=== PATIENT | female | born 1975 | race Caucasian/White ===

== ENCOUNTER 2019-09-24 19:34 | Observation (INO) | payer MEDICAID, SELFPAY ==
[2019-09-24 19:38] VITALS: BP 114/65; PULSE 75; RESP 16; TEMP 37.2; O2SAT 99; BMI 32.1
--- NOTE | 2019-09-24 20:10 | CTR_ITS ---
PROCEDURE INFORMATION: Exam: CT Head Without Contrast Exam date and time: 09/24/2019 8:24 PM Age: 44 years old Clinical indication: Pain; Weakness, facial; Headache; Additional info: CVA TECHNIQUE: Imaging protocol: Computed tomography of the head without contrast. Total DLP: 705.14 mGy-cm Radiation optimization: All CT scans at this facility use at least one of these dose optimization techniques: automated exposure control; mA and/or kV adjustment per patient size (includes targeted exams where dose is matched to clinical indication); or iterative reconstruction. COMPARISON: No relevant prior studies available. FINDINGS: Brain: Normal. No hemorrhage. Unremarkable white matter. No mass effect. Ventricles: Normal. No ventriculomegaly. Bones/joints: Unremarkable. No acute fracture. Sinuses: Visualized sinuses are unremarkable. No fluid levels. Mastoid air cells: Visualized mastoid air cells are well aerated. Soft tissues: Unremarkable. CT/CT head wo con* [id number] IMPRESSION: No acute intracranial abnormality. Radiation Dose CTDIVOL = (mGy): DLP = 705.14 (mGy-cm)
--- NOTE | 2019-09-24 20:10 | XR_ITS ---
WS: [id number] Portable AP upright chest, 09/24/2019 Clinical Data: cp Comparison: None. Findings: No nodules, masses or effusions are seen. The heart is normal. The pulmonary vascularity is not increased. No pneumonia or pneumothorax is seen. Patient's clothing obscures only minimal detail . XR/XR chest 1V portable [id number] Impression: Negative chest.
--- NOTE | 2019-09-24 20:11 | ECG_ITS ---
Measurements Intervals [place] Rate: 70 P: 51 CA: 142 QRS: 34 QRSD: 71 T: 32 QT: 350 QTc: 378 SINUS RHYTHM No previous ECG available for comparison Electronically Signed On 09-25-2019 12:57:37 CDT by Sahara Jacob M.D. [email or web address]
[2019-09-24 20:32] LABS: Basophils # 0.1 10^3/uL (0.0-0.1); Basophils % 0.6 %; Eosinophils # 0.2 10^3/uL (0.0-0.8); Eosinophils % 2.5 %; Hematocrit 42.9 % (37.0-47.0); Hemoglobin 12.8 g/dL (11.5-15.3); Lymphocytes # 1.9 10^3/uL (0.8-4.8); Lymphocytes % 22.4 %; Mean Corpuscular HGB Conc 29.8 g/dL (30.0-36.0); Mean Corpuscular Hemoglobin 28.1 pg (28.0-34.0); Mean Corpuscular Volume 94.1 fL (81-99); Mean Platelet Volume 12.5 fL (7.4-10.4); Monocytes # 0.6 10^3/uL (0.2-0.9); Neutrophils # 5.6 10^3/uL (1.8-7.7); Neutrophils % 67.3 %; Nucleated Red Blood Cells % 0 %; Platelet Count 258 10^3/cmm (130-400); Red Blood Count 4.56 10^6/uL (4.1-5.3); Red Cell Distribution Width 14.1 % (12.1-15.1); White Blood Count 8.3 10^3/uL (4.0-10.0)
--- NOTE | 2019-09-24 20:43 | ED_ITS ---
HPI - Weakness General: Chief complaint: Weakness Stated complaint: possible stroke symptoms Time Seen by Provider: 09/24/19 20:33 Source: patient and family Mode of arrival: ambulatory Limitations: no limitations History of Present Illness: HPI Narrative: 44-year-old female who states she has had left-sided facial droop and difficulty swallowing since noon today. She states she has had some left-sided weakness but is chronic weakness from spinal stenosis. Patient denies any new difficulties walking and can move both of her upper extremities. Patient denies any headache. She denies any chest pain. MD Complaint: generalized weakness and numbness Onset (ago): hour(s) Duration: constant Severity: moderate Relieving factors: none Exacerbating factors: none Associated symptoms: Denies chest pain, chills, dysuria, easy bruising, fever(s), headache(s), nausea or vomiting Review of Systems Const: Denies: fever, chills, body aches or change in appetite Eyes: Denies: blurry vision or eye discomfort ENMT: Denies: throat pain or dental pain Card: Denies: chest pain Resp: Denies: shortness of breath GI: Denies: abdominal pain, nausea, vomiting or diarrhea : Denies: painful urination Musc: Denies: neck pain or back pain Skin/Breast: Denies: rash Neuro: Reports: weakness in extremities and slurred speech; Denies: headache Psych: Denies: depression Anderson/Lymph: Denies: easy bruising All/Imm: Denies: hives PFSH ED PFSH: Social History Smoking and tobacco status: never smoked Female Reproductive History: Date of last menstrual period: 09/03/19 Physical Exam Const: COMMON NORMALS: no apparent distress, oriented x3 and healthy appearing HENMT: COMMON NORMALS: normocephalic and head/scalp atraumatic HEAD & SCALP: normocephalic and atraumatic Eye: COMMON NORMALS: PERRL and EOMs intact bilaterally PUPIL: Yes PERRL Neck/C-Spine: COMMON NORMALS: full ROM and supple Chest: COMMONS NORMALS: inspection of chest normal and palpation of chest normal Resp: COMMON NORMALS: normal respiratory effort, no retractions, no use of accessory muscles and clear to auscultation bilaterally AUSCULTATION: clear to auscultation bilaterally Cardio: COMMON NORMALS: regular rate, regular rhythm and no murmurs RATE: regular rate RHYTHM: regular rhythm GI: COMMON NORMALS: normal to inspection, nondistended, normoactive bowel sounds, soft to palpation, non-tender and no masses PALPATION: Yes soft Extremity: COMMON NORMALS: normal to inspection and full ROM Neuro: COMMON NORMALS: oriented x3 and moves all extremities; negative for no focal motor deficits (left sided facial droop, slight aphasia) Psych: COMMON NORMALS: mental status grossly normal, thought process normal and cooperative THOUGHT PROCESS: normal thought process Skin: COMMON NORMALS: no rashes or lesions noted and no wounds GENERAL SKIN EXAM: no rashes or lesions noted Course Vital Signs: Vital signs: Vital Signs Temperature 98.6 F 09/24/19 20:50 Pulse Rate 75 09/24/19 20:50 Respiratory Rate 18 09/24/19 20:50 Blood Pressure 131/73 09/24/19 20:50 Pulse Oximetry 100 09/24/19 20:50 MDM - Weakness MDM Narrative: Medical decision making narrative: Meli presents here with slight facial droop. Patient is not a TPA candidate as her symptoms started roughly at noon. She has no weakness on exam. Her CT head is negative at this time. Will admit for further evaluation. Lab Data: Labs: Lab Results 09/24/19 09/24/19 09/24/19 Range/Units 20:25 20:25 20:42 WBC 8.3 (4.0-10.0) 10^3/ uL RBC 4.56 (4.1-5.3) 10^6/u L Hgb 12.8 (11.5-15.3) g/dL Hct 42.9 (37.0-47.0) % MCV 94.1 (81-99) fL MCH 28.1 (28.0-34.0) pg MCHC 29.8 L (30.0-36.0) g/dL RDW 14.1 (12.1-15.1) % Plt Count 258 (130-400) 10^3/c mm MPV 12.5 H (7.4-10.4) fL Neut % (Auto) 67.3 % Lymph % (Auto) 22.4 % [place] % (Auto) 7.0 % Eos % (Auto) 2.5 % Baso % (Auto) 0.6 % Neut # (Auto) 5.6 (1.8-7.7) 10^3/u L Lymph # (Auto) 1.9 (0.8-4.8) 10^3/u L [place] # (Auto) 0.6 (0.2-0.9) 10^3/u L Eos # (Auto) 0.2 (0.0-0.8) 10^3/u L Baso # (Auto) 0.1 (0.0-0.1) 10^3/u L Nucleated RBC % (a uto) 0 % Nucleated RBCs # 0.0 /100WBC Sodium 139 (136-145) mmol/L Potassium 4.4 (3.5-5.1) mmol/L Chloride 103 (98-107) mmol/L Carbon Dioxide 26 (22-29) mmol/L Anion Gap 14.4 (5-19) BUN 11 (6-20) mg/dL Creatinine 0.8 (0.5-0.9) mg/dL GFR Calculation 78.3 L (90-130) mL/min Glucose 119 H (65-115) mg/dL POC Glucose 119 (70-110) mg/dL Calculated Osmolal ity 285 (285-295) mOsm/k g Calcium 9.3 (8.5-10.5) mg/dL Total Bilirubin 0.2 (0.15-1.2) mg/dL AST 13 (0-32) U/L ALT 13 (0-33) U/L Alkaline Phosphata se 51 (35-105) IU/L Total Protein 7.3 (6.6-8.7) g/dL Albumin 4.0 (3.5-5.2) g/dL Globulin 3.3 (1.3-4.6) g/dL Urine Color (Yellow) Urine Appearance (CLEAR) Urine pH (5-7) Ur Specific Gravit y (1.005-1.030) Urine Protein (Negative) Urine Glucose (UA) (Normal) Urine Ketones (Negative) Urine Blood (Negative) Urine Nitrate (Negative) Urine Bilirubin (NEGATIVE) Urine Urobilinogen (Negative) mg/dL Ur Leukocyte Elizabeth ase (Negative) 09/24/19 Range/Units 21:51 WBC (4.0-10.0) 10^3/ uL RBC (4.1-5.3) 10^6/u L Hgb (11.5-15.3) g/dL Hct (37.0-47.0) % MCV (81-99) fL MCH (28.0-34.0) pg MCHC (30.0-36.0) g/dL RDW (12.1-15.1) % Plt Count (130-400) 10^3/c mm MPV (7.4-10.4) fL Neut % (Auto) % Lymph % (Auto) % [place] % (Auto) % Eos % (Auto) % Baso % (Auto) % Neut # (Auto) (1.8-7.7) 10^3/u L Lymph # (Auto) (0.8-4.8) 10^3/u L [place] # (Auto) (0.2-0.9) 10^3/u L Eos # (Auto) (0.0-0.8) 10^3/u L Baso # (Auto) (0.0-0.1) 10^3/u L Nucleated RBC % (a uto) % Nucleated RBCs # /100WBC Sodium (136-145) mmol/L Potassium (3.5-5.1) mmol/L Chloride (98-107) mmol/L Carbon Dioxide (22-29) mmol/L Anion Gap (5-19) BUN (6-20) mg/dL Creatinine (0.5-0.9) mg/dL GFR Calculation (90-130) mL/min Glucose (65-115) mg/dL POC Glucose (70-110) mg/dL Calculated Osmolal ity (285-295) mOsm/k g Calcium (8.5-10.5) mg/dL Total Bilirubin (0.15-1.2) mg/dL AST (0-32) U/L ALT (0-33) U/L Alkaline Phosphata se (35-105) IU/L Total Protein (6.6-8.7) g/dL Albumin (3.5-5.2) g/dL Globulin (1.3-4.6) g/dL Urine Color Yellow (Yellow) Urine Appearance Clear (CLEAR) Urine pH 8 H (5-7) Ur Specific Gravit y 1.015 (1.005-1.030) Urine Protein Neg (Negative) Urine Glucose (UA) Norm (Normal) Urine Ketones Negative (Negative) Urine Blood Neg (Negative) Urine Nitrate Negative (Negative) Urine Bilirubin Neg (NEGATIVE) Urine Urobilinogen 1 H (Negative) mg/dL Ur Leukocyte Elizabeth ase Negative (Negative) Imaging Data^: CT Head: Attestation: I personally reviewed and interpreted this imaging study as follows: Radiologist's impression: [address] [address] [address] Scan Report Signed Patient: Meli Cobb Unit #: [id number] : 1975 Age/Sex: 44 / F ADM Date: 09/24/19 Loc: ER Room/Bed: Attending Dr: Ordering Provider/Ordering MD: Megan Conklin MD Date of Service: 09/24/19 Procedure(s): CT head wo con* [id number] Accession Number(s): [id number] Report Number: [id number] PROCEDURE INFORMATION: Exam: CT Head Without Contrast Exam date and time: 09/24/2019 8:24 PM Age: 44 years old Clinical indication: Pain; Weakness, facial; Headache; Additional info: CVA TECHNIQUE: Imaging protocol: Computed tomography of the head without contrast. Total DLP: 705.14 mGy-cm Radiation optimization: All CT scans at this facility use at least one of these dose optimization techniques: automated exposure control; mA and/or kV adjustment per patient size (includes targeted exams where dose is matched to clinical indication); or iterative reconstruction. COMPARISON: No relevant prior studies available. FINDINGS: Brain: Normal. No hemorrhage. Unremarkable white matter. No mass effect. Ventricles: Normal. No ventriculomegaly. Bones/joints: Unremarkable. No acute fracture. Sinuses: Visualized sinuses are unremarkable. No fluid levels. Mastoid air cells: Visualized mastoid air cells are well aerated. Soft tissues: Unremarkable. CT/CT head wo con* [id number] IMPRESSION: No acute intracranial abnormality. EKG Data^: EKG 1: Attestation: I personally reviewed and interpreted this EKG as follows: EKG interpretation date: 09/24/19 EKG interpretation time: 21:04 Interpretation: nsr hr [address] or t wave abnormalities qrs 71 qtc 371 Discharge Plan Discharge Prescriptions: No Action celecoxib 200 mg capsule See Rx Instructions .ROUTE .COMPLEX RF: 0 baclofen 10 mg tablet See Rx Instructions .ROUTE .COMPLEX RF: 0 ibuprofen 200 mg Tablet 200 mg PO Q6H PRN (Reason: Pain) RF: 0 gabapentin 300 mg capsule See Rx Instructions .ROUTE .COMPLEX RF: 0 Coding Level of Care Code ED Communicable Disease Specialist for Denys Fwd Exam Comprehensive
--- NOTE | 2019-09-24 20:46 | PC.NURSE ---
BS reading 119
[2019-09-24 20:47] LABS: Glucose Point of Care 119 mg/dL (70-110)
[2019-09-24 20:48] LABS: Alanine Aminotransferase 13 U/L (0-33); Alkaline Phosphatase 51 IU/L (35-105); Anion Gap 14.4 (5-19); Aspartate Amino Transferase 13 U/L (0-32); Blood Urea Nitrogen 11 mg/dL (6-20); Calcium 9.3 mg/dL (8.5-10.5); Carbon Dioxide 26 mmol/L (22-29); Chloride 103 mmol/L (98-107); Globulin 3.3 g/dL (1.3-4.6); Glomerular Filtration Rate 78.3 mL/min (90-130); Glucose 119 mg/dL (65-115); Osmolality Calculated 285 mOsm/kg (285-295); Potassium 4.4 mmol/L (3.5-5.1); Sodium 139 mmol/L (136-145); Total Bilirubin 0.2 mg/dL (0.15-1.2); Total Protein 7.3 g/dL (6.6-8.7)
[2019-09-24 20:50] VITALS: BP 131/73; PULSE 75; RESP 18; TEMP 37; O2SAT 100
--- NOTE | 2019-09-24 22:21 | P.HP_ITS ---
Providers/Chief Complaint Primary Care Provider: Michael Rich APRN Chief Complaint: possible stroke symptoms History of Present Illness Meli Cobb is a 44 year old female who has a history of spinal stenosis status post surgeries on her neck back and leg without significant past medical history came in with chief complaint of right-sided facial droop and inability to eat or noodles. Her symptoms started at 6:30 PM when she was trying to eat noodles, her returned home and noticed right-sided facial droop, at that time she noticed that she is not able to whistle or swallow noodles and her right eyelid was twitching. She called EMS and was evaluated in ER NIH score of 1, CT head negative, blood work is unremarkable, EKG showing sinus rhythm with LVH criteria, she is not hypertensive, heart rate 80. She is denying such symptoms in the past, she is denying [place], coronary disease, stroke. She is endorsing to right leg limited range of motion because of her spinal stenosis and leg surgery but she has not noticed any new changes. She uses walker for ambulation at home. Review of Systems Const: Denies: fever or chills Eyes: Reports: eye discomfort; Denies: change in vision ENMT: Denies: throat pain or painful swallowing Card: Denies: chest pain or palpitations Resp: Denies: shortness of breath or non-productive cough GI: Denies: abdominal pain, nausea or vomiting : Denies: flank pain, difficulty urinating or urinary frequency Musc: Reports: back pain, joint pain, joint stiffness and limited range of motion; Denies: neck pain Skin/Breast: Denies: rash Neuro: Reports: difficulty walking; Denies: headache, weakness in extremities, lack of coordination, dizziness, confusion, slurred speech or seizure-like activity Psych: Denies: anxiety Endo: Denies: excessive urination Anderson/Lymph: Denies: easy bruising All/Imm: Denies: hives Medications/Allergies Home Medications Medication Instructions Recorded Confirmed Last Taken Type baclofen See Rx Instructions .ROUTE .COMPLEX 09/24/19 09/24/19 09/24/19 History celecoxib See Rx Instructions .ROUTE .COMPLEX 09/24/19 09/24/19 09/24/19 History gabapentin See Rx Instructions .ROUTE .COMPLEX 09/24/19 09/24/19 09/24/19 History ibuprofen 200 mg PO Q6H PRN 09/24/19 09/24/19 Unknown History Allergies Allergy/AdvReac Type Severity Reaction Status Date / Time No Known Allergies Allergy Verified 09/24/19 19:48 PFSH Acute PFSH: Medical History (Updated 09/24/19 @ 23:18 by Jennifer Galindo MD) No pertinent past medical history Spinal stenosis Surgical History (Updated 09/24/19 @ 23:15 by Jennifer Galindo MD) H/O neck surgery Previous back surgery Family History (Updated 09/24/19 @ 23:15 by Jennifer Galindo MD) Denies family history of Clotting disorder Dementia Chronic kidney disease (CKD) Cancer Social History (Updated 09/24/19 @ 23:16 by Jennifer Galindo MD) Smoking and tobacco status: never smoked Alcohol intake: never Substance/Drug Use: never Household members: spouse and family Housing: House Female Reproductive History: Date of last menstrual period: 09/03/19 Vitals/I&O/Wt Last Vital Signs Temp 98.6 F 09/24/19 20:50 Pulse 75 09/24/19 20:50 Resp 18 09/24/19 20:50 BP 131/73 09/24/19 20:50 Pulse Ox 100 09/24/19 20:50 Weight last 48 hrs Weight 77.111 kg Physical Exam Narrative: EXAM NARRATIVE: This is a young female lying comfortably in her bed EOMI, PERRLA NIH 1 No slurring of speech or dysarthria She is experiencing twitching of right eyelid, Right-sided facial droop noticed, negative Rich's palsy no deviation of tongue, she has good cough reflex No visual deficit No pronator drift No cerebellar signs Limited range of motion of right leg however, chronic weakness, Gait was not checked, Reflexes equivocal S1, S2 sinus rhythm, heart rate 80 Systolic blood pressure 127 Abdomen soft, nontender, distended, obese obesity, bowel sound present Lungs are clear to auscultation no adventitious sounds Appropriate mood and affect Skin does not show any signs of ischemia gangrene or ulcer Data : 09/24/19 20:25 09/24/19 20:25 A&P Assessment and plan (1) TIA (transient ischemic attack): Status: Acute Code(s): G45.9 - Transient cerebral ischemic attack, unspecified Additional A&P Information TIA ABCD 2 score is 1 [address] score [address] head negative We will check A1c level, lipid panel, Kindly reevaluate her in the morning if she could benefit from an MRI, considering recent use of celecoxib I would try to rule out embolic phenomenon for this TIA we will get CTA head and neck Physical therapy Regular diet, I will start her on aspirin, high-dose statin and Plavix and discontinue celecoxib Spinal stenosis with right sided chronic leg weakness with limited range of motion No acute deficit Full code Regular diet DVT prophylaxis Lovenox Attestations Medical Necessity Statement*: Anticipating discharge in less than 48 hours if she stays clinically stable Time Spent in Patient Care: 45 Coding Level of Care Code Acute Glueline Worker for Denys Ramos Diagnoses TIA (transient ischemic attack) G45.9
[2019-09-24 22:40] LABS: Add Urine Microscopic? NO
[2019-09-24 22:44] LABS: Bilirubin Urine Neg (NEGATIVE); Blood Urine Neg (Negative); Glucose Urine UA Norm (Normal); Ketones Urine Negative (Negative); Leukocyte Esterase Urine Negative (Negative); Nitrate Urine Negative (Negative); Protein Urine Neg (Negative); Specific Gravity, Urine 1.015 (1.005-1.030); Urine Appearance Clear (CLEAR); Urine Color Yellow (Yellow); Urobilinogen Urine 1 mg/dL (Negative); pH Urine 8 (5-7)
[2019-09-24] MEDS: aspirin 325 mg Tablet PO (23:15)
[2019-09-24 23:41] VITALS: BP 126/84; PULSE 88; RESP 16; TEMP 36.8; O2SAT 96
--- NOTE | 2019-09-24 23:59 | PC.NURSE ---
pt with left side of face not equal when asked to smile. unable to do heel man to right leg pt reports normal weakness for her from previous surgery.
[2019-09-25] MEDS: enoxaparin 40 mg/0.4 mL Syringe SUBCUT (00:20)
[2019-09-25 00:36] LABS: Chol HDL Ratio 4.41 mg/dL (0.0-4.40); Cholesterol 181 mg/dL (0-200); HDL Cholesterol 41 mg/dL (60-100); LDL Cholesterol Calculated 102 mg/dL (50-129); LDL HDL Ratio 2.49 RATIO (0.00-3.22); Triglycerides 192 mg/dL (0-150)
[2019-09-25 00:40] VITALS: BP 114/76; PULSE 80; RESP 18; TEMP 36.7; O2SAT 98
[2019-09-25] MEDS: baclofen 10 mg Tablet 20 MG PO ×3 (00:43→21:30)
[2019-09-25] MEDS: gabapentin 300 mg Capsule 600 MG PO ×4 (00:43→17:46)
[2019-09-25 01:16] LABS: Estmated Average Glucose 111; Hemoglobin A1C 5.5 % (4.0-6.0)
--- NOTE | 2019-09-25 02:11 | PC.NURSE ---
ct called pt to come down for cta of head. Iv to left hand, x2 attempts to get 20 at ac unsuccessful at this time. House supervisior notified. Pt refusing any more sticks tonight wants to rest and try in am. Ct made aware.
[2019-09-25 04:35] VITALS: BP 124/85; PULSE 70; RESP 20; TEMP 36.6; O2SAT 91
[2019-09-25 07:40] VITALS: BP 100/67; PULSE 104; RESP 20; TEMP 37.1; O2SAT 97
[2019-09-25] MEDS: atorvastatin 40 mg Tablet 80 MG PO (08:33)
[2019-09-25] MEDS: aspirin 81 mg EC Tablet PO (08:33)
[2019-09-25] MEDS: clopidogrel 75 mg Tablet PO (08:33)
--- NOTE | 2019-09-25 11:26 | PC.NURSE ---
IV STARTED BY MARIA M JONAS FROM DIRECT CARE SPECIALIST WITH ULTRASOUND ON FIRST STICK FOR CTA PROCEDURE
[2019-09-25 12:00] VITALS: BP 100/68; PULSE 81; RESP 18; TEMP 36.9; O2SAT 97
--- NOTE | 2019-09-25 14:12 | PC.NURSE ---
patient taken to CT
[2019-09-25] MEDS: iohexol 350 mg/mL 100 mL Btl IV (14:17)
[2019-09-25 15:18] VITALS: BP 105/69; PULSE 74; RESP 22; TEMP 37.1; O2SAT 96
[2019-09-25] MEDS: acetaminophen 325 mg Tablet 650 MG PO (16:43)
--- NOTE | 2019-09-25 18:17 | P.PN_ITS ---
Subjective Subjective: Interval history: continues with L side facial palsy, unchanged. No new symptoms . CTa pending Medications: Reviewed: Yes Vitals/I&O/Wt Last Vital Signs Temp 98.8 F 09/25/19 15:18 Pulse 74 09/25/19 15:18 Resp 22 H 09/25/19 15:18 BP 105/69 09/25/19 15:18 Pulse Ox 96 09/25/19 15:18 09/25/19 09/25/19 09/25/19 06:59 14:59 22:59 Intake Total 300 / 300 360 / 360 240 / 600 Output Total 600 / 600 201 / 201 Balance -300 / -300 360 / 360 39 / 399 Weight last 48 hrs Weight 77.111 kg Physical Exam Narrative: EXAM NARRATIVE: GEN: Awake, alert and oriented, no acute distress CVS: S1S2 N RS: CTA B/L Abd: Soft, nt/nd , bs+ ANTIQUER: left side facial paralysis Data : 09/24/19 20:25 09/24/19 20:25 A&P Assessment and plan (1) CVA (cerebral vascular accident): Status: Acute Code(s): I63.9 - Cerebral infarction, unspecified Additional A&P Information Current NIH score 1 CT head negative, CTA pending Patient c/o dysphagia will order swallow evaluation, unable to ascertain if isolated 7th nerve palsy vs other intracranial nerve involvement Physical therapy Regular diet, Spinal stenosis with right sided chronic leg weakness with limited range of motion No acute deficit Full code Regular diet DVT prophylaxis Lovenox Attestations Medical Necessity Statement*: pending CTA results Coding Level of Care Code Acute Industrial Maintenance Repairer Helper for [facility] Fwd Diagnoses CVA (cerebral vascular accident) I63.9
[2019-09-25 20:00] VITALS: BP 112/76; PULSE 79; RESP 20; TEMP 36.9; O2SAT 94
[2019-09-25] MEDS: artificial tears Op Soln 15 mL Btl 1 DROP EYE-BOTH (21:30)
--- NOTE | 2019-09-25 23:46 | CT_ITS ---
WS: [id number] CTA HEAD AND NECK TECHNIQUE: Contrast enhanced CTA of the head and neck with coronal and sagittal reformatted images an d maximum intensity projection (MIP) images. NASCET criteria utilized. CLINICAL INFORMATION: TIA COMPARISON: None. DLP: 2048.[address] scans at [facility] use at least one of these dose optimization techniques: automat ed exposure control; mA and/or kV adjustment per patient size (includes targeted exams where dose is matched to clinical indication); or iterative reconstruction. FINDINGS: RIGHT: Right common carotid artery is patent. No significant right ICA stenosis. ICA is patent to the skull base. LEFT: Left common carotid artery is patent. No significant left ICA stenosis. Left ICA is patent to t he skull base. INTRACRANIAL CTA: Both vertebral arteries are patent. Codominant vertebral arteries. Normal basilar artery. Normal vasc ularity to the [employer]PERATOR territory bilaterally. Normal vascularity to the [place] and MCA territories bilaterally. No evidence of high-grade proximal cornelius nosis or aneurysm. Normal thyroid gland. Mastoid air cells and paranasal sinuses are well aerated. Moderate spondylitic changes cervical spine worse at C5-C7. Wide decompressive laminectomies. CT/CT angio headneck* [id number] IMPRESSION: 1. No significant ICA stenosis. 2. Normal intracranial andreafski of Anderson. 3. No evidence of high-grade intracranial stenosis. 4. Normal vertebral arteries.
[2019-09-26] VITALS: BP 102/68; PULSE 84; RESP 18; TEMP 36.7; O2SAT 95
[2019-09-26] MEDS: artificial tears Op Soln 15 mL Btl 1 DROP EYE-BOTH ×5 (01:02→17:44)
[2019-09-26] MEDS: enoxaparin 40 mg/0.4 mL Syringe SUBCUT (01:02)
[2019-09-26 04:00] VITALS: BP 111/67; PULSE 98; RESP 22; TEMP 36.5; O2SAT 94
[2019-09-26 07:43] VITALS: BP 130/68; PULSE 102; RESP 18; TEMP 37.1; O2SAT 96
[2019-09-26] MEDS: aspirin 81 mg EC Tablet PO (08:30)
[2019-09-26] MEDS: gabapentin 300 mg Capsule 600 MG PO ×3 (08:30→17:43)
[2019-09-26] MEDS: atorvastatin 40 mg Tablet 80 MG PO (08:31)
[2019-09-26] MEDS: clopidogrel 75 mg Tablet PO (08:31)
[2019-09-26] MEDS: baclofen 10 mg Tablet 20 MG PO ×2 (08:31→13:58)
[2019-09-26 11:23] VITALS: BP 120/74; PULSE 101; RESP 16; TEMP 37.2; O2SAT 94
--- NOTE | 2019-09-26 13:56 | MRR_ITS ---
PROCEDURE INFORMATION: Exam: MR Head Without Contrast Exam date and time: 09/26/2019 2:20 PM Age: 44 years old Clinical indication: Weakness, facial; Patient HX: Left facial numbness/unable to close left eye; Additional info: Stroke TECHNIQUE: Imaging protocol: MR of the head without contrast. COMPARISON: CT head wo con* [id number] 09/24/2019 8:46 PM FINDINGS: Brain: There is no evidence of acute intracranial hemorrhage, midline shift or mass effect. There is an ovoid 6 mm focus of increased T2/FLAIR hyperintensity within the right frontal lobe which is without evidence of diffusion restriction or susceptibility related artifact (image 18, series 6). There are a few additional scattered T2/FLAIR hyperintesities within the subcortical and periventriclar white matter. There is no evidence of acute ischemia on diffusion weighted imaging. Ventricles: No ventriculomegaly. Bones/joints: Unremarkable. Soft tissues: Unremarkable. Sinuses: There is mild mucosal thickening within the maxillary sinuses right greater than left. Mastoid air cells: Normal as visualized. No mastoid effusion. Orbits: Unremarkable. Sella: Partial empty sella is incidentally noted. MR/MR head wo con* [id number] IMPRESSION: 1. No acute intracranial process identified. 2. Few T2/FLAIR hyperintesities within the subcortical and periventriclar white matter as detailed, which are nonspecific and are most commonly seen with chronic microvascular ischemic versus post inflammatory change. Additional etiologies include chronic migraine and demyelinating processes. 3. Mild maxillary sinus mucosal thickening right slightly greater than left. No evidence of air-fluid level.
--- NOTE | 2019-09-26 14:10 | PC.CHAP ---
Pastoral Care Encounter/Spiritual Assessment Type of Contact [] Declined baggage porter visit [] Patient/Family/Request visit [] Outpatient visit [] Follow-up visit [] Physician referral [] Code/Alert [X] Routine visit [] Staff referral [] Actively dying [] Patient sleeping [] Family support [] [] Out of room [] Palliative care [] [] Receiving care in room [] Pre-surgical visit [] Trauma [] Long length of stay [] ICU visit [] Other: Relational/Emotional Strength [] Patient feels connected with others/family/visitors/staff [] Distress [] Loneliness/isolation [] Abandonment Spirituality of Patient [] Person of Vanessa [] Attends Presybeterian of their Vanessa [] Believes in Prayer [] Reads Bible or Druze materials [] There are Spiritual issues to be addressed Sample Grinder Interventions [] Prayer [] Active listening [] Non-anxious presence [] Spiritual/emotional support [] Crisis/trauma care [] Spiritual counseling [] Bereavement support [] Provided bereavement packet [] Provided Bible/devotional materials [] Provided toy/stuffed animal, coloring book to patient or family member [] Provided Communion [] Anointing/[facility] [place] [] Salvation [] Completed spiritual assessment [] Other: Impact on Illness or Injury [] Angry [] Fearful [] Anxious [] Often cries [] Exhaustion [] Unable to work [] Unable to attend synagogue [] Unable to walk/stand [] Unable to read [] Unable to drive [] Unable to eat/drink [] Unable to sleep [] Unable to be with family [] Patient intubated [] Other: Summary Time spent with patient
[2019-09-26 15:29] VITALS: BP 116/78; PULSE 74; RESP 16; TEMP 36.9; O2SAT 94
[2019-09-26] MEDS: predniSONE 20 mg Tablet 60 MG PO (15:47)
--- NOTE | 2019-09-26 16:11 | P.DS_ITS ---
Discharge Providers Date of Admission: 09/24/19 22:07 Date of Discharge: September 26, 2019 Attending Provider at Admission: Jennifer Galindo MD Attending Provider at Discharge: Violet Lee MD Primary Care Provider: Michael Rich APRN Diagnoses at Discharge Discharge Diagnosis (1) Rich's palsy: Status: Acute Reason for Visit Reason for Visit: Reason For Visit: facial paralysis Hospital Course Discharge Summary: 44 year old female who has a history of spinal stenosis status post surgeries on her neck back and leg presented to the hospital with acute onset left sided facial paralysis affecting both upper and lower part of face with associated dysguesia and shooting pain in and behind the left ear. There were no other new focal deficits. There was noticeable loss of left nasolabial fold, drooling at left side of mouth, inability to close left eye and reduced movemenst over left forehead. CT head, CTA head & neck, and MR head were without any evidence of acute stroke. Overall symptoms consistent with Rich's palsy. She was started on treatment with Prednisone 60mg per day and Valacyclovir to complete a course of 1 week with advise to follow up with her PCP. PUD ppx was given with pantoprazole. Patient underwent close neuro monitoring, without evidence of any other developing deficits. She was recommended to use an eye patch for the left eye and also use artificial tears liberally. 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 Discharge Data Data Completed and Pending: Completed Studies During Hospitalization Category Date Time Status CT angio headneck * 80099/25657 Urge nt Cat Scan 09/25/19 23:[address] head wo con* 7 0450 Urgent Cat Scan 09/24/19 20:10 Completed XR chest 1V leigha ble 51827 Urgent Exams 09/24/19 20:10 Completed MR head wo con* 7 0551 Routine MRI 09/26/19 13:56 Completed Pending at discharge Category Date Time Status FL barium swallow modifd 99115 Rout ine Exams 09/28/19 09:00 Stop Req Vitals: Last Vital Signs Temp 98.4 F 09/26/19 15:29 Pulse 74 09/26/19 15:29 Resp 16 09/26/19 15:29 BP 116/78 09/26/19 15:29 Pulse Ox 94 09/26/19 15:29 Discharge Plan Discharge Patient Disposition: Home, Self-Care Condition: Stable Prescriptions: New valacyclovir 1 gram Tablet 1,000 mg PO BID 7 Days Qty: 14 RF: 0 prednisone 20 mg Tablet 60 mg PO DAILY 7 Days Qty: 7 RF: 0 aspirin 81 mg Tablet,Delayed Release (Dr/Ec) 81 mg PO DAILY Qty: 0 RF: 0 pantoprazole 40 mg Tablet,Delayed Release (Dr/Ec) 40 mg PO DAILY 7 Days Qty: 7 RF: 0 Isopto Tears 0.5 % Drops 1 drp eye-both Q1H Qty: 0 RF: 0 artificial tears(hypromellose) 0.3 % gel 1 drop ophthalmic (eye) BID PRN (Reason: dry eyes) Qty: 10 RF: 0 Continued baclofen 10 mg tablet See Rx Instructions .ROUTE .COMPLEX RF: 0 ibuprofen 200 mg Tablet 200 mg PO Q6H PRN (Reason: Pain) RF: 0 gabapentin 300 mg capsule See Rx Instructions .ROUTE .COMPLEX RF: 0 Discontinued celecoxib 200 mg capsule See Rx Instructions .ROUTE .COMPLEX RF: 0 Discharge Orders: Discharge Order (Routine); Ordered 09/26/19 Ordered By: Violet Lee Referrals: Michael Rich APRN [Primary Care Provider] - 7-10 days (Call Saturday to be seen in the next 7 to 10 days.) Discharge Diet: Usual diet Discharge Activity: Resume usual activity Patient Instructions: Prednisone (By mouth), Aspirin (By mouth), Valacyclovir (By mouth), Pantoprazole (By mouth), Eye Lubricant (Into the eye), Transient Ischemic Attack (DC) Discharge Date/Time: 09/26/19 18:10 Discharge Attestations Time Spent in Discharge Care*: greater than 30 min Quality Metrics Clinical Quality Measures During this hospital stay, did patient experience: None Coding Level of Care Code Acute Fountain Dispenser for Denys Ramos Diagnoses Rich's palsy G51.0
[2019-09-26] MEDS: valACYclovir 1,000 mg Tablet 1000 MG PO (17:43)
--- NOTE | 2019-09-26 17:54 | PC.NURSE ---
Discharge Discharge information given per the physician's order. Patient verbalized understanding of the information and did not have any further questions.
[2019-09-26 18:41] VITALS: BP 116/78; PULSE 74; RESP 16; TEMP 36.9; O2SAT 94
== END 2019-09-26 18:10 | disposition home or self-care (01) ==
LOC: ER 20:33 → MEDSURG 23:24
PROVIDERS: Admitting Provider Internal Medicine; Emergency Provider Emergency Medicine; PCP Nurse Practitioner Family; Visit Provider Student in an Organized Health Care Education/Training Program
DX: G45.9 Transient cerebral ischemic attack, unspecified (principal); I63.9 Cerebral infarction, unspecified; G51.0 Bell's palsy
CPT/HCPCS: 12345; 36416; 70450; 70496; 70498; 70551; 71045; 80053; 80061; 81003; 82962; 83036; 85025; 92523; 92610; 93005; 96372; 97116; 97162; 99283; 99285; G0378; J1650; J7512; Q9967

== ENCOUNTER 2019-10-09 11:06 | Emergency (ER) | payer MEDICAID, SELFPAY ==
[2019-10-09 11:31] VITALS: BP 109/72; PULSE 74; RESP 16; TEMP 36.7; O2SAT 95; BMI 32.8
[2019-10-09 11:37] VITALS: O2SAT 98
--- NOTE | 2019-10-09 11:38 | ED_ITS ---
Entered by Lopez Garcia, acting as scribe for Raj Patrick DO Oct 09, 2019 11:06 HPI - Headache General: Chief Complaint: Headache Stated Complaint: H/A Time Seen by Provider: 10/09/19 11:38 History of Present Illness: HPI Narrative: 44 yo female presents with headache. Pt states that her headache is behind her left eye and goes to her ear. Pt states that she was recently diagnosed with bells palsy. Pt states that she took ibuprofen a few hours ago. pt states that she has had headaches all week. MD elicited complaint: headache Onset (ago): week(s) (1) Onset description: gradually Location: left Quality & Timing: aching Relieving factors: nothing Associated symptoms: Reports no associated symptoms; Deny chest pain, confusion, fever(s), malaise, nausea, rash, syncope or vomiting Review of Systems Const: Denies: fever, chills, body aches, fatigue, malaise or night sweats Eyes: Denies: change in vision or blurry vision ENMT: Denies: throat pain, oral sores/lesions, dental pain, nasal discharge or nasal congestion Card: Denies: chest pain, palpitations, irregular heart rhythm, edema, syncope, shortness of breath on exertion, shortness of breath when lying down or leg pain with exertion Resp: Denies: shortness of breath, productive cough, non-productive cough or wheezing GI: Denies: abdominal pain, nausea, vomiting, vomiting blood, coffee grounds in vomit, difficulty swallowing, heartburn/indigestion, diarrhea, constipation, cramping, blood in stool or black tarry stool : Denies: flank pain, painful urination, urinary frequency, urinary urgency, urinary incontinence or blood in urine Musc: Denies: neck pain, back pain, extremity pain, extremity swelling, joint pain or joint swelling Skin/Breast: Denies: rash, itching or redness Neuro: Reports: headache; Denies: numbness in extremities, weakness in extremities, changes in sensation, lack of coordination, difficulty walking, frequent falls, dizziness, vertigo or confusion Psych: Denies: anxiety, depression, loss of interest, visual hallucinations, auditory hallucinations, suicidal ideation or homicidal ideation Endo: Denies: excessive urination, excessive thirst, tired all the time or cold intolerance Anderson/Lymph: Denies: easy bruising, easy bleeding, petechiae, enlarged lymph nodes or tender lymph nodes PFSH ED PFSH: Medical History (Updated 10/09/19 @ 13:04 by Raj Patrick DO) No pertinent past medical history Spinal stenosis Surgical History (Updated 09/24/19 @ 23:15 by Jennifer Galindo MD) H/O neck surgery Previous back surgery Family History (Updated 09/24/19 @ 23:15 by Jennifer Galindo MD) Denies family history of Clotting disorder Dementia Chronic kidney disease (CKD) Cancer Social History (Updated 09/24/19 @ 23:16 by Jennifer Galindo MD) Smoking and tobacco status: never smoked Alcohol intake: never Household members: spouse and family Housing: House Female Reproductive History: Date of last menstrual period: 09/24/19 Physical Exam Const: COMMON NORMALS: average body habitus, oriented x3 and alert GENERAL APPEARANCE: cooperative, comfortable, well kempt and well developed NUTRITIONAL APPEARANCE: not obese ORIENTATION/CONSCIOUSNESS: Yes awake, Yes oriented to person and Yes oriented to place HENMT: COMMON NORMALS: normocephalic, head/scalp atraumatic, EAC's normal, TM's normal bilaterally, external nose normal, moist oral mucous membranes and oropharynx normal HEAD & SCALP: normocephalic and atraumatic NOSE: external nose normal EXTERNAL AUDITORY CANAL: EAC's normal TYMPANIC MEMBRANE: TM's normal bilaterally MOUTH: oral and palatal mucosa normal, lip normal and tongue normal THROAT: posterior oropharynx normal and tonsils normal Eye: COMMON NORMALS: PERRL, EOMs intact bilaterally, conjunctivae normal and no scleral icterus CONJUNCTIVA: Yes conjunctivae normal PUPIL: Yes PERRL Neck/C-Spine: COMMON NORMALS: full ROM, no lymphadenopathy, supple, no meningeal signs and thyroid normal THYROID: thyroid normal and asymmetrical Lymph: LYMPHATIC: no lymphadenopathy noted Resp: COMMON NORMALS: normal respiratory effort, no retractions, no use of accessory muscles and clear to auscultation bilaterally AUSCULTATION: clear to auscultation bilaterally Cardio: COMMON NORMALS: regular rate and regular rhythm RATE: regular rate RHYTHM: regular rhythm HEART SOUNDS: no murmurs GI: COMMON NORMALS: normal to inspection, nondistended, normoactive bowel sounds, soft to palpation and no hepatosplenomegaly PALPATION: Yes soft and Yes no hepatosplenomegaly : COMMON NORMALS: Yes no CVA tenderness BLADDER/KIDNEY EXAM: Yes no CVA tenderness Back/Pelvis: COMMON NORMALS: no CVA tenderness LUMBAR SPINE/LOWER BACK: Yes normal to inspection Extremity: COMMON NORMALS: no clubbing, cyanosis or edema, no calf tenderness and no pedal edema Neuro: COMMON NORMALS: oriented x3 SENSORIUM/ORIENTATION: Yes alert, Yes oriented to person and Yes oriented to place MENINGEAL SIGNS: Yes no meningeal signs Psych: APPEARANCE: Yes well kempt Skin: COMMON NORMALS: no rashes or lesions noted and skin turgor normal GENERAL SKIN EXAM: no rashes or lesions noted and turgor normal Course Vital Signs: Vital signs: Vital Signs Temperature 98.1 F 10/09/19 11:31 Pulse Rate 74 10/09/19 13:28 Respiratory Rate 16 10/09/19 13:28 Blood Pressure 105/68 10/09/19 13:28 Pulse Oximetry 97 10/09/19 13:28 MDM - Headache MDM Narrative: Medical decision making narrative: Her exam is normal. Her headache is improved we will go ahead and discharge her home gave her Phenergan to use PRN for breakthrough headaches encouraged her to follow-up with his primary care doctor can return if needed. Discharge Plan Discharge Patient Disposition: Home, Self-Care Clinical Impression: Migraine Condition: Stable Prescriptions: New promethazine 25 mg tablet 25 mg PO Q6H PRN (Reason: headache) Qty: 14 RF: 0 No Action baclofen 10 mg tablet See Rx Instructions .ROUTE .COMPLEX RF: 0 ibuprofen 200 mg Tablet 200 mg PO Q6H PRN (Reason: Pain) RF: 0 gabapentin 300 mg capsule See Rx Instructions .ROUTE .COMPLEX RF: 0 aspirin 81 mg Tablet,Delayed Release (Dr/Ec) 81 mg PO DAILY Qty: 0 RF: 0 Isopto Tears 0.5 % Drops 1 drp eye-both Q1H Qty: 0 RF: 0 artificial tears(hypromellose) 0.3 % gel 1 drop ophthalmic (eye) BID PRN (Reason: dry eyes) Qty: 10 RF: 0 Discharge Orders: Discharge Order (Routine); Ordered 10/09/19 Ordered By: Raj Patrick Referrals: Michael Rich APRN [Primary Care Provider] - Discharge Diet: Usual diet Discharge Activity: Increase activity as tolerated Patient Instructions: Migraine Headache (ED) Discharge Date/Time: 10/09/19 13:28 Coding Level of Care Code ED Icu Specialist for Chg Fwd Exam Comprehensive The documentation recorded by the Jose meyer Kialy, accurately reflects the service I personally performed and the decisions made by Darnell escobar Curtis L, DO Oct 09, 2019 11:06
[2019-10-09] MEDS: metoclopramide 5 mg/mL SDV 2 mL 10 MG IVP (12:19)
[2019-10-09] MEDS: sodium chloride 0.9% 1,000 ML 999 ML IV (12:19)
[2019-10-09] MEDS: ketorolac 30 mg/mL INJ IVP (12:19)
[2019-10-09] MEDS: valproic acid inj 500 MG in sodium chloride 0.9% 50 ML 55 MG IV (12:22)
[2019-10-09 13:28] VITALS: BP 105/68; PULSE 74; RESP 16; O2SAT 97
== END 2019-10-09 13:28 | disposition home or self-care (01) ==
PROVIDERS: Emergency Provider Family Medicine; PCP Nurse Practitioner Family
DX: G43.909 Migraine, unspecified, not intractable, without status migrainosus (principal)
CPT/HCPCS: 12345; 96365; 96366; 96375; 99282; 99283; J1885; J2765; J7030

== ENCOUNTER 2021-02-28 06:00 | Outpatient (RCR) | payer MEDICAID, SELFPAY | END 2021-03-14 23:59 | disposition home or self-care (01) | LOC: TPT 06:00 | PROVIDERS: PCP Nurse Practitioner Family; Referring Provider Student in an Organized Health Care Education/Training Program; Visit Provider Student in an Organized Health Care Education/Training Program | DX: G82.50 Quadriplegia, unspecified (principal) | CPT/HCPCS: 97110; 97163 ==

== ENCOUNTER 2021-03-15 06:00 | Outpatient (RCR) | payer MEDICAID, SELFPAY | END 2021-04-13 23:59 | disposition home or self-care (01) | LOC: TPT 06:00 | PROVIDERS: PCP Nurse Practitioner Family; Referring Provider Student in an Organized Health Care Education/Training Program; Visit Provider Student in an Organized Health Care Education/Training Program | DX: G82.50 Quadriplegia, unspecified (principal) | CPT/HCPCS: 97110; 97116 ==

== ENCOUNTER 2021-04-14 06:00 | Outpatient (RCR) | payer MEDICAID, SELFPAY | END 2021-05-14 23:59 | disposition home or self-care (01) | LOC: TPT 06:00 | PROVIDERS: PCP Nurse Practitioner Family; Referring Provider Student in an Organized Health Care Education/Training Program; Visit Provider Student in an Organized Health Care Education/Training Program | DX: G82.50 Quadriplegia, unspecified (principal) | CPT/HCPCS: 97110; 97116; 97164 ==

== ENCOUNTER 2021-05-15 06:00 | Outpatient (RCR) | payer MEDICAID, SELFPAY | END 2021-06-13 23:59 | disposition home or self-care (01) | LOC: TPT 06:00 | PROVIDERS: PCP Nurse Practitioner Family; Referring Provider Student in an Organized Health Care Education/Training Program; Visit Provider Student in an Organized Health Care Education/Training Program | DX: G82.50 Quadriplegia, unspecified (principal) | CPT/HCPCS: 97110; 97116; 97164 ==

== ENCOUNTER 2021-06-14 06:00 | Outpatient (RCR) | payer MEDICAID, SELFPAY | END 2021-06-15 23:59 | disposition home or self-care (01) | LOC: TPT 06:00 | PROVIDERS: PCP Nurse Practitioner Family; Referring Provider Student in an Organized Health Care Education/Training Program; Visit Provider Student in an Organized Health Care Education/Training Program | DX: G82.50 Quadriplegia, unspecified (principal) | CPT/HCPCS: 97110 ==

== ENCOUNTER 2023-05-01 19:07 | Emergency (ER) | payer MEDICAID, SELFPAY ==
[2023-05-01 19:11] VITALS: BP 113/75; PULSE 84; RESP 16; TEMP 36.7; O2SAT 97; BMI 34.3
--- NOTE | 2023-05-01 19:18 | ED_ITS ---
HPI - Eye Problem General: Chief complaint: Eye Problems Stated complaint: Left Side Of Face Swollen Time Seen by Provider: 05/01/23 19:17 Source: patient and family Mode of arrival: ambulatory Limitations: no limitations History of Present Illness: Patient is a 47-year-old female presents to ED today with complaint of swelling surrounding her left eye. Patient states yesterday she began feeling like her eye was getting puffy and states when she woke up this morning she noticed redness and swelling surrounding it and stated her eye was matted shut. Thought maybe it was secondary to allergies as she has a history of this. Patient states she took Benadryl without any improvement. Patient states she has no problems moving her eyes and this is not uncomfortable for her. She does have some minor tenderness and light sensitivity. She denies any recent injury or trauma to the eye. No foreign body history or sensations. No diplopia or abnormal vision. States she had something similar before that went away. She is not a diabetic. chief complaint: eye redness Onset (ago): day(s) (yesterday) Onset description: gradual Duration: constant Location: left eye Eye Symptoms: redness and discharge Place: home Mechanism: none Severity: moderate Associated symptoms: Reports no associated symptoms; Denies fever(s), headache(s), nausea, neck pain or vomiting Treatments Prior to Arrival: none Related Data: Patient tetanus UTD: Yes Review of Systems Const: Denies: fever(s), chills, body aches, fatigue or malaise Eyes: Reports: photophobia, eye discomfort and eye discharge; Denies: change in vision, blurry vision, blind spots, eye redness, floaters or seeing flashes ENMT: Denies: throat pain, uvular edema, odynophagia, ear or mastoid pain, nasal discharge, nasal congestion or sinus pain Card: Denies: chest pain Resp: Denies: dyspnea GI: Denies: nausea or vomiting Musc: Denies: neck pain Neuro: Denies: headache(s) PFSH ED PFSH: Medical History No pertinent past medical history Spinal stenosis Surgical History H/O neck surgery Previous back surgery Family History Denies family history of Clotting disorder Dementia Chronic kidney disease (CKD) Cancer Social History Smoking and tobacco/nicotine status: never used tobacco/nicotine Alcohol intake: never Substance/Drug Use: never Household members: spouse and family Housing: House Female Reproductive History: Date of last menstrual period: 01/22/23 Physical Exam Const: COMMON NORMALS: no acute distress, patient oriented x3, no limitations, alert and well nourished HENMT: COMMON NORMALS: normocephalic, atraumatic and Normal external nose present HEAD & SCALP: normal to inspection, normocephalic and atraumatic FACE & SINUS: sinuses nontender NOSE: Normal external nose present EXTERNAL EAR: Yes mastoids normal and Yes no periauricular adenopathy THROAT: no uvular edema Eye: COMMON NORMALS: Equal, round and reactive pupils present and EOMs intact bilaterally GENERAL EYE: normal light reflex VISUAL ACUITY: Yes acuity normal PERIORBITAL: periorbital findings abnormal positive left periorbital swelling and periorbital erythema CONJUNCTIVA: Yes other (bilateral conjunctiva seem slightly injected) PUPIL: Yes Equal, round and reactive pupils present DIRECT OPHTHALMOSCOPY: Yes normal light reflex OTHER: no proptosis or chemosis noted Lymph: LYMPHATIC: no lymphadenopathy noted Resp: COMMON NORMALS: normal respiratory effort and clear to auscultation bilaterally AUSCULTATION: clear to auscultation bilaterally Cardio: COMMON NORMALS: regular rate and regular rhythm RATE: regular rate RHYTHM: regular rhythm Neuro: COMMON NORMALS: patient oriented x3 SENSORIUM/ORIENTATION: Yes alert Course Vital Signs: Vital signs: Vital Signs Temperature 98.0 F 05/01/23 20:05 Pulse Rate 84 05/01/23 20:05 Respiratory Rate 16 05/01/23 20:05 Blood Pressure 113/75 05/01/23 20:05 Pulse Oximetry 97 05/01/23 20:05 Oxygen Delivery Me thod Room Air 05/01/23 19:11 MDM - Eye Problem Medical Decision Making Patient here for erythema and edema surrounding her left periorbital region. She has no pain with EOMs. No proptosis or chemosis noted. She is not having any diplopia or change in vision. No fevers. I think symptoms at this time are most likely related to a periorbital cellulitis. She did have some minor swelling near medial canthus so could be a dacryocystitis although this is more likely in children. Patient was given IM Rocephin prior to discharge will be placed on Augmentin. She has follow-up appointment with her primary care provider tomorrow. Strict return to ED precautions if she does not begin improving over the next 24 to 48 hours. No radiology studies performed this visit Discharge Plan Discharge Patient Disposition: Home Clinical Impression: Periorbital cellulitis Qualifiers: Laterality: left Qualified Code(s): L03.213 - Periorbital cellulitis Condition: Stable Prescriptions: New amoxicillin-pot clavulanate 875-125 mg tablet 1 tab PO BID Qty: 14 0RF No Action baclofen 10 mg tablet See Rx Instructions .ROUTE .COMPLEX Rx Instructions: 20 mg orally TAKE 2 TAB PO WITH FOOD OR MILK DAILY FOR 30 DAYS. ibuprofen 200 mg Tablet 200 mg PO Q6H PRN (Reason: Pain) gabapentin 300 mg capsule See Rx Instructions .ROUTE .COMPLEX Rx Instructions: 300 mg orally 2 CAPSULES PO TID WITH FOOD FOR 30 DAYS. aspirin 81 mg Tablet,Delayed Release (Dr/Ec) 81 mg PO DAILY Qty: 0 0RF Isopto Tears 0.5 % Drops 1 drp eye-both Q1H Qty: 0 0RF artificial tears(hypromellose) 0.3 % gel 1 drop ophthalmic (eye) BID PRN (Reason: dry eyes) Qty: 10 0RF Rx Instructions: use at night time promethazine 25 mg tablet 25 mg PO Q6H PRN (Reason: headache) Qty: 14 0RF Discharge Orders: Discharge ED (Routine); Ordered 05/01/23 Ordered By: Tawana Costello Referrals: LOW TAPIA APRN [Primary Care Provider] - Patient Instructions: Periorbital Cellulitis (ED) Activity Restrictions/Additional Instructions: Begin antibiotics immediately. Follow-up with primary care tomorrow as scheduled. You may apply warm compresses to the eye. As we discussed if symptoms do not improve (and sooner if they worsen) in the next 24 to 48 hours you need to promptly return to the emergency department for further evaluation. Coding Level of Care Code ED Construction Coordinator for Denys Ramos
[2023-05-01] MEDS: cefTRIAXone 1,000 MG in water for injection-sterile 2.1 ML 2.1 MG IM (19:54)
[2023-05-01 20:05] VITALS: BP 113/75; PULSE 84; RESP 16; TEMP 36.7; O2SAT 97
== END 2023-05-01 20:06 | disposition home or self-care (01) ==
PROVIDERS: Emergency Provider Physician Assistant; PCP Nurse Practitioner Family
DX: L03.213 Periorbital cellulitis (principal); Z79.82 Long term (current) use of aspirin
CPT/HCPCS: 96372; 99284; J0696

== ENCOUNTER → 2023-06-10 10:03 | Outpatient (BNVA) | payer MEDICAID, SELFPAY | PROVIDERS: PCP Nurse Practitioner Family; Referring Provider Nurse Practitioner Family; Visit Provider Specialist | DX: G95.9 Disease of spinal cord, unspecified (principal); G47.33 Obstructive sleep apnea (adult) (pediatric); G31.84 Mild cognitive impairment of uncertain or unknown etiology; T14.90XS Injury, unspecified, sequela; X58.XXXS Exposure to other specified factors, sequela; M62.831 Muscle spasm of calf | CPT/HCPCS: 99205 ==